=== PATIENT | female | born 1955 | race African-American/Black ===

== ENCOUNTER 2018-05-06 10:14 | Emergency (ER) | payer MEDICAID, OTHER ==
[~2018-05-06] VITALS: Ht 165.1 cm; Wt 92.0 kg
[~2018-05-06 10:14] MED LIST: ACET-2708 PO; ASCO-339 PO; ASPI-1159 PO; CARV25TA47 PO; CLON0.2T PO; DILT240C52 PO; FOLI-68 PO; GARL1CAP12 PO; MELA1TAB9 PO; METF500T6 PO; OMEG-110 PO; [UNRECOGNIZED DRUG - OTHER]
[2018-05-06] MEDS ORDERED: ONDANSETRON HCL 4MG/2ML VIAL IV STA (10:29)
[2018-05-06] MEDS ORDERED: SODIUM CHLORIDE 0.9% 1,000 ML IV ONE (10:29)
[2018-05-06] MEDS ORDERED: MORPHINE SULFATE 4 MG/ML CPJ (NOT FOR IM USE) IV STA (10:29)
[2018-05-06 12:16] LABS: BASOPHILS % 0.4 % (0.0-2.0); EOSINOPHILS % 0.1 % (0.0-5.0); HEMOGLOBIN. 12.7 g/dL (12.0-16.0); LYMPHOCYTES % 14.3 % (20.0-50.0); MEAN CORPUSCULAR HEMOGLOBIN 29.8 pg (28.0-32.0); MEAN CORPUSCULAR VOLUME 89.2 fL (81.0-99.0); MEAN PLATELET VOLUME 9.4 fl (7.4-10.4); MONOCYTES % 4.7 % (2.0-8.0); NEUTROPHILS % 80.5 % (40.0-76.0); PLATELET 144 x1000/uL (130-400); RED BLOOD CELL COUNT 4.26 mill/uL (4.2-5.4); RED CELL DISTRIBUTION WIDTH 13.8 % (11.6-14.6)
[2018-05-06 12:21] LABS: PROTHROMBIN TIME 10.7 sec (9.4-11.6)
[2018-05-06 12:22] LABS: CHLORIDE 101 mEq/L (98-107)
[2018-05-06 16:11] LABS: CLARITY URINE CLEAR (CLEAR); COLOR URINE YELLOW (YELLOW); KETONES URINE NEGATIVE (NEGATIVE); LEUKOCYTE ESTERASE URINE NEGATIVE (NEGATIVE); NITRITE URINE NEGATIVE (NEGATIVE); OCCULT BLOOD URINE NEGATIVE (NEGATIVE); PH URINE 7.5 (4.5-8.0); PROTEIN URINE NEGATIVE (NEGATIVE); SPECIFIC GRAVITY URINE 1.018 (1.005-1.030); UROBILINOGEN URINE 0.2 E.U./dL (0.2-1.0)
[2018-05-06 19:00] VITALS: BP 153/98
== END 2018-05-06 19:23 | disposition home or self-care (01) ==
LOC: ER 10:27 → CANBEDREQ 19:57
DX: R10.13 Epigastric pain (principal); R11.0 Nausea; I10 Essential (primary) hypertension; Z79.899 Other long term (current) drug therapy
CPT/HCPCS: 36415; 71045; 74176; 80053; 81003; 83690; 84484; 85025; 85610; 93005; 96374; 96375; 99285; J2270; J2405; J7030